=== PATIENT | female | born 1985 | race Asian ===

== ENCOUNTER 2017-11-06 10:49 | Emergency (ER) | payer OTHER ==
[~2017-11-06] VITALS: Ht 157.5 cm; Wt 52.3 kg
[2017-11-06 11:03] VITALS: Ht 157.5 cm; Wt 52.3 kg
[2017-11-06 12:44] VITALS: BP 110/72
== END 2017-11-06 12:44 | disposition home or self-care (01) ==
LOC: ED 10:49
DX: R09.89 Other specified symptoms and signs involving the circulatory and respiratory systems (principal)